=== PATIENT | female | born 1990 | race Hispanic/Latino ===

== ENCOUNTER 2017-05-20 10:10 | Observation (INO) | payer MEDICAID ==
[~2017-05-20] VITALS: Ht 162.6 cm; Wt 90.3 kg
[2017-05-20 12:37] VITALS: BP 118/77
== END 2017-05-20 13:10 | disposition home or self-care (01) ==
LOC: LDH 10:10
PROVIDERS: ADMIT Specialist; ATTEND Specialist
DX: O62.9 Abnormality of forces of labor, unspecified (principal); O60.03 Preterm labor without delivery, third trimester; Z3A.37 37 weeks gestation of pregnancy
CPT/HCPCS: G0378 ×4

== ENCOUNTER 2017-06-02 06:08 | Inpatient (IN) | payer MEDICAID ==
[~2017-06-02] VITALS: Ht 162.6 cm; Wt 91.2 kg
[2017-06-02] MEDS ORDERED: LACTATED RINGERS 1000ML 1,000 ML IV PRN (06:14)
[2017-06-02] MEDS ORDERED: ROPIVACAINE 0.2%200ML EPIDURAL 200 ML EP PRN (06:15)
[2017-06-02] MEDS ORDERED: OXYTOCIN 10 USP UNITS/ML 20 UNIT in LACTATED RINGERS 1000ML 1,000 ML IV SCH (06:15)
[2017-06-02] MEDS ORDERED: NALOXONE HCL 0.4 MG/1 ML ML IV PRN (06:15)
[2017-06-02] MEDS ORDERED: EPHEDRINE SULFATE 50 MG/ML AMPULE IVP PRN (06:15)
[2017-06-02] MEDS ORDERED: LACTATED RINGERS 500 ML 500 ML IV PRN (06:15)
[2017-06-02] MEDS ORDERED: FLU VACC QS2017-18 36MOS UP/PF 60 MCG/0.5 ML ML IM SCH (06:45)
[2017-06-02 06:51] LABS: APPEARANCE,URINE CLOUDY (CLEAR); BILIRUBIN,URINE NEGATIVE (NEGATIVE); COLOR,URINE YELLOW (YELLOW); GLUCOSE, URINE (UA) NEGATIVE (NEGATIVE); KETONES,URINE NEGATIVE (NEGATIVE); LEUKOCYTE ESTERASE ,URINE LARGE (NEGATIVE); NITRATE,URINE NEGATIVE (NEGATIVE); OCCULT BLOOD,URINE TRACE-INTACT (NEGATIVE); PROTEIN,URINE TRACE (NEGATIVE)
[2017-06-02 07:03] LABS: BACTERIA,URINE Few /HPF (None Seen); RBC,URINE 0-1 /HPF (0-1); SQUAMOUS EPITHELIAL CELL,UR Many /LPF (0-2); WBC,URINE 51-100 /HPF (0-1)
[2017-06-02 07:36] LABS: HEMATOCRIT 28.9 % (36-48); MEAN CORPUSCULAR HEMOGLOBIN 22.9 pg (27.0-33.0); MEAN CORPUSCULAR HGB CONC 32.6 g/dL (32.0-36.0); MEAN CORPUSCULAR VOLUME 70.2 fL (79-99); PLATELET COUNT (AUTO) 293 K/uL (130-400); RED BLOOD CELL COUNT(AUTO) 4.12 MIL/uL (4.00-5.50); RED CELL DISTRIBUTION WIDTH 16.1 % (11.0-15.5); WHITE BLOOD COUNT (AUTO) 7.3 K/uL (4.8-10.8)
[2017-06-02] MEDS ORDERED: OXYTOCIN 10 USP UNITS/ML ONE ×2 (07:37→14:05)
[2017-06-02] MEDS ORDERED: LIDOCAINE HCL 1% 20 ML VIAL ONE (12:36)
[2017-06-02] MEDS ORDERED: OXYTOCIN-LR 20 UNITS/1000 ML 1,000 ML IV SCH (13:45)
[2017-06-02] MEDS ORDERED: LANOLIN 30GM OINTMENT TP PRN (13:45)
[2017-06-02] MEDS ORDERED: WITCH HAZEL 1 PAD TP PRN (13:45)
[2017-06-02] MEDS ORDERED: BENZOCAINE/LANOLIN/ALOE VERA 60 ML AEROSOL TP PRN (13:45)
[2017-06-02] MEDS ORDERED: DIPH,PERTUSS(ACELL),TET VAC/PF 0.5 ML VIAL IM PRN (13:45)
[2017-06-02 15:28] VITALS: BP 121/66
[2017-06-02 16:01] VITALS: BP 126/77
[2017-06-02] MEDS: IBUPROFEN 600 MG TABLET PO PRN (16:01)
[2017-06-02 19:51] VITALS: BP 121/69
[2017-06-02] MEDS ORDERED: ACETAMINOPHEN-CODEINE 300/30MG TAB PO PRN (20:15)
[2017-06-02] MEDS: DOCUSATE SODIUM 100 MG CAP PO SCH (20:58)
[2017-06-02 23:00] VITALS: BP 128/56
[2017-06-02 23:14] LABS: HEMATOCRIT 28.2 % (36-48); MEAN CORPUSCULAR HEMOGLOBIN 23.4 pg (27.0-33.0); MEAN CORPUSCULAR HGB CONC 33.3 g/dL (32.0-36.0); MEAN CORPUSCULAR VOLUME 70.3 fL (79-99); PLATELET COUNT (AUTO) 271 K/uL (130-400); RED BLOOD CELL COUNT(AUTO) 4.01 MIL/uL (4.00-5.50); RED CELL DISTRIBUTION WIDTH 15.9 % (11.0-15.5); WHITE BLOOD COUNT (AUTO) 10.7 K/uL (4.8-10.8)
[2017-06-03 03:01] VITALS: BP 117/85
[2017-06-03 08:00] VITALS: BP 110/69
[2017-06-03] MEDS: IBUPROFEN 600 MG TABLET PO PRN (09:13)
[2017-06-03] MEDS: DOCUSATE SODIUM 100 MG CAP PO SCH (09:13)
[2017-06-03 11:21] LABS: HEPATITIS Bs ANTIGEN SCREEN P Negative (Negative)
[2017-06-03 11:26] VITALS: BP 111/68
[2017-06-03 15:24] VITALS: BP 125/81
== END 2017-06-03 15:35 | disposition home or self-care (01) | DRG 560 ==
LOC: LDH 06:08 → WSH 15:25
PROC: 10E0XZZ Delivery of Products of Conception, External Approach (ICD-10-PCS; principal; 2017-06-02)
PROC: 10907ZC Drainage of Amniotic Fluid, Therapeutic from Products of Conception, Via Natural or Artificial Opening (ICD-10-PCS; 2017-06-02)
PROC: 3E0R3BZ Introduction of Anesthetic Agent into Spinal Canal, Percutaneous Approach (ICD-10-PCS; 2017-06-02)
PROC: 00HU33Z Insertion of Infusion Device into Spinal Canal, Percutaneous Approach (ICD-10-PCS; 2017-06-02)
PROC: 3E0234Z Introduction of Serum, Toxoid and Vaccine into Muscle, Percutaneous Approach (ICD-10-PCS; 2017-06-02)
PROC: 3E0234Z Introduction of Serum, Toxoid and Vaccine into Muscle, Percutaneous Approach (ICD-10-PCS; 2017-06-02)
DX: O77.0 Labor and delivery complicated by meconium in amniotic fluid (principal); D63.8 Anemia in other chronic diseases classified elsewhere; O99.02 Anemia complicating childbirth; Z37.0 Single live birth; Z3A.39 39 weeks gestation of pregnancy; Z23 Encounter for immunization
CPT/HCPCS: 36415; 81001; 85027; 86592; 86850; 86900; 86901; 87340; 90715; A4314; A4606; J2590; J7120; Q2038

== ENCOUNTER 2017-07-21 09:44 | Day surgery (SDC) | payer MEDICAID ==
[2017-07-19 11:47] LABS: BASOPHILS % (AUTO) 0.5 % (0.0-5.0); HEMATOCRIT 33.1 % (36-48); LYMPHOCYTES % (AUTO) 27.6 % (21.0-51.0); MEAN CORPUSCULAR HEMOGLOBIN 23.4 pg (27.0-33.0); MEAN CORPUSCULAR HGB CONC 32.3 g/dL (32.0-36.0); MEAN CORPUSCULAR VOLUME 72.4 fL (79-99); MONOCYTES % (AUTO) 5.7 % (3.0-13.0); NEUTROPHILS % (AUTO) 65.2 % (40.0-77.0); PLATELET COUNT (AUTO) 371 K/uL (130-400); RED BLOOD CELL COUNT(AUTO) 4.57 MIL/uL (4.00-5.50); RED CELL DISTRIBUTION WIDTH 19.1 % (11.0-15.5); WHITE BLOOD COUNT (AUTO) 8.4 K/uL (4.8-10.8)
[2017-07-19 11:59] VITALS: BP 112/51
[~2017-07-21] VITALS: Ht 157.5 cm; Wt 86.2 kg
[2017-07-21] VITALS (13 sets, daily range): BP systolic 92–112; BP diastolic 46–74
[2017-07-21] MEDS ORDERED: CALDOLOR 800MG+NS 250ML 250 ML IV ONE (10:04)
[2017-07-21] MEDS ORDERED: LACTATED RINGERS 1000ML 1,000 ML IV ONE ×2 (10:04)
[2017-07-21] MEDS ORDERED: OCTYL 2-CYANOACRYLATE 1 EACH TP ONE (10:58)
[2017-07-21] MEDS ORDERED: BUPIVACAINE/PF 0.25% 30ML VIAL IJ ONE (10:58)
[2017-07-21] MEDS ORDERED: PROPOFOL 10 MG/ML 20ML VIAL IV ONE ×2 (11:14→12:12)
[2017-07-21] MEDS ORDERED: MIDAZOLAM HCL 1 MG/ML 2ML VIAL ONE (11:14)
[2017-07-21] MEDS ORDERED: DEXAMETHASONE SOD PHOSPHATE 10MG/ML 1ML VIAL ONE (12:09)
[2017-07-21] MEDS ORDERED: ONDANSETRON HCL MDV 20ML 2 MG/ML VIAL ONE (12:09)
[2017-07-21] MEDS ORDERED: NEOSTIGMINE METHYLSULFATE 1MG/ML IV ONE (12:11)
== END 2017-07-21 14:10 | disposition home or self-care (01) ==
LOC: DAH 09:44
DX: Z30.2 Encounter for sterilization (principal); N83.8 Other noninflammatory disorders of ovary, fallopian tube and broad ligament; N80.1 Endometriosis of ovary
CPT/HCPCS: 36415; 58661; 84703; 85025; A4215; A4351; C1769 ×3; J1100; J1741; J2250; J2704 ×2; J2710; J3490; J7120 ×2

== ENCOUNTER 2019-02-13 10:02 | Emergency (ER) | payer MEDICAID, OTHER ==
[2019-02-13 10:38] LABS: APPEARANCE,URINE Clear (CLEAR); BILIRUBIN,URINE Negative (NEGATIVE); COLOR,URINE Yellow (YELLOW); GLUCOSE, URINE (UA) Negative (NEGATIVE); KETONES,URINE Negative (NEGATIVE); LEUKOCYTE ESTERASE ,URINE Negative (NEGATIVE); NITRATE,URINE Negative (NEGATIVE); OCCULT BLOOD,URINE Negative (NEGATIVE); PROTEIN,URINE Negative (NEGATIVE)
[2019-02-13 10:44] LABS: HCG,QUAL RESULT NEGATIVE (NEGATIVE)
== END 2019-02-13 10:54 | disposition home or self-care (01) ==
LOC: EDH 10:02
DX: S39.011A Strain of muscle, fascia and tendon of abdomen, initial encounter (principal); Z90.49 Acquired absence of other specified parts of digestive tract; X50.0XXA Overexertion from strenuous movement or load, initial encounter; Y93.89 Activity, other specified; Y92.89 Other specified places as the place of occurrence of the external cause; Y99.8 Other external cause status
CPT/HCPCS: 81003; 81025

== ENCOUNTER 2019-02-22 07:15 | Emergency (ER) | payer SELFPAY | END 2019-02-22 07:51 | disposition home or self-care (01) | LOC: EDH 07:15 | DX: R10.12 Left upper quadrant pain (principal); M54.5 Low back pain; J34.89 Other specified disorders of nose and nasal sinuses | CPT/HCPCS: 99281 ==

== ENCOUNTER 2022-05-18 07:31 | Emergency (ER) | payer BC, OTHER ==
[~2022-05-18] VITALS: Ht 162.6 cm; Wt 77.1 kg
[2022-05-18] MEDS ORDERED: 0.9%NACL 1000ML 1,000 ML IV ONE (08:00)
[2022-05-18 08:16] LABS: BASOPHILS % (AUTO) 0.5 % (0.0-5.0); EOSINOPHILS % (AUTO) 2.2 % (0.0-8.0); HEMATOCRIT 38.4 % (36-48); LYMPHOCYTES % (AUTO) 27.4 % (21.0-51.0); MEAN CORPUSCULAR HEMOGLOBIN 28.1 pg (27.0-33.0); MEAN CORPUSCULAR HGB CONC 32.8 g/dL (32.0-36.0); MEAN CORPUSCULAR VOLUME 85.7 fL (79-99); MONOCYTES % (AUTO) 5.8 % (3.0-13.0); NEUTROPHILS % (AUTO) 63.7 % (40.0-77.0); PLATELET COUNT (AUTO) 305 K/uL (130-400); RED BLOOD CELL COUNT(AUTO) 4.48 MIL/uL (4.00-5.50); WHITE BLOOD COUNT (AUTO) 7.8 K/uL (4.8-10.8)
[2022-05-18 08:21] LABS: APPEARANCE,URINE CLOUDY (CLEAR); BILIRUBIN,URINE NEGATIVE (NEGATIVE); COLOR,URINE YELLOW (YELLOW); GLUCOSE, URINE (UA) NEGATIVE (NEGATIVE); KETONES,URINE NEGATIVE (NEGATIVE); LEUKOCYTE ESTERASE ,URINE NEGATIVE Leu/uL (NEGATIVE); NITRATE,URINE NEGATIVE (NEGATIVE); OCCULT BLOOD,URINE SMALL (NEGATIVE); PROTEIN,URINE 20 mg/dL (NEGATIVE)
[2022-05-18 08:23] LABS: HCG,QUALITATIVE URINE NEGATIVE (NEGATIVE)
[2022-05-18 08:27] LABS: CREATININE 0.7 mg/dL (0.5-1.5); POTASSIUM 3.2 mmol/L (3.5-5.1)
[2022-05-18 08:32] LABS: ALBUMIN 3.8 g/dL (3.5-5.0); TOTAL PROTEIN, SERUM 7.9 g/dL (6.0-8.3)
[2022-05-18 08:34] LABS: BACTERIA,URINE RARE /HPF (None Seen); MUCUS,URINE MOD LPF (None Seen); SQUAMOUS EPITHELIAL CELL,UR MANY /HPF (0-2)
[2022-05-18] MEDS ORDERED: KETOROLAC 30MG VIAL (30MG/ML) IVP STA (09:18)
[2022-05-18 09:59] VITALS: BP 116/80
[2022-05-18] MEDS ORDERED: NAPR-1196 PO (10:27)
== END 2022-05-18 10:37 | disposition home or self-care (01) ==
LOC: EDH 07:31
DX: M79.10 Myalgia, unspecified site (principal)
CPT/HCPCS: 99284; 74176; 96374; 96361; 80053; 83690; 85025; 81001; 81025; 36415; J7030; J1885